=== PATIENT | female | born 1995 | race Caucasian/White ===

== ENCOUNTER 2017-09-04 10:20 | Emergency (ER) | payer OTHER ==
[2017-09-04 10:36] VITALS: BP 112/73; PULSE 65; TEMP 98.9; BMI 21.6
--- NOTE | 2017-09-04 10:36 | PDOC ---
History of Present Illness - General Chief Complaint: Injury Stated Complaint: RIGHT ELBOW PAIN Time Seen by Provider: 09/04/17 10:36 History Source: Patient Exam Limitations: No Limitations - History of Present Illness Initial Comments: 09/04/17 11:51 Pt presents to the ED complaining of R elbow pain after falling and injuring her elbow at work 10 days ago. Patient reports that there was a large bruise at the time of the injury. Presents today because although she has a full ROM at her elbow and is able to use her arm normally, she is concerned because she has persistent pain. Also reports that the area of bruising turned yellow yesterday and that this was concerning to her. Past History - Past Medical History Allergies/Adverse Reactions: Allergies Allergy/AdvReac Type Severity Reaction Status Date / Time No Known Allergies Allergy Verified 09/04/17 10:33 Home Medications: Ambulatory Orders Lamotrigine [Lamictal Xr] 100 mg PO HS 09/04/17 Risperidone [Risperdal] 2 mg PO HS 09/04/17 COPD: No Psychiatric Problems: Yes - Immunization History Td Vaccination: Yes Immunization Up to Date: Yes - Suicide/Smoking/Psychosocial Hx Smoking Status: No Smoking History: Smoker current status UNK Number of Cigarettes Smoked Daily: 0 Cigars Per Day: 0 Hx Alcohol Use: No Drug/Substance Use Hx: No Substance Use Type: None Review of Systems - Review of Systems Able to Perform ROS?: Yes Is the patient limited Danish proficient: No Constitutional: No: Symptoms Reported, See HPI, Chills, Diaphoresis, Fever, Loss of Appetite, Malaise, Night Sweats, Weakness, Weight Stable, Unintentional Wgt. Loss, Unexplained wgt Loss, Other HEENTM: No: Symptoms Reported, See HPI, Eye Pain, Blurred Vision, Tearing, Recent change in vision, Double Vision, Cataracts, Ear Pain, Ocular Prothesis, Ear Discharge, Nose Pain, Nose Congestion, Tinnitus, Nose Bleeding, Hearing Loss , Throat Pain, Throat Swelling, Mouth Pain, Dental Problems, Difficulty Swallowing, Mouth Swelling, Other Respiratory: No: Symptoms reported, See HPI, Cough, Orthopnea, Shortness of Breath, SOB with Exertion, SOB at Rest, Stridor, Wheezing, Productive cough, Hemoptysis, Other Cardiac (ROS): No: Symptoms Reported, See HPI, Chest Pain, Edema, Irregular Heart Rate, Lightheadedness, Palpitations, Syncope, Chest Tightness, Other ABD/GI: No: Symptoms Reported, See HPI, Abdominal Distended, Abd. Pain w/ defecation, Blood Streaked Bowels, Constipated, Diarrhea, Difficulty Swallowing , Nausea, Poor Appetite, Poor Fluid Intake, Rectal Bleeding, Vomiting, Indigestion, Abdominal cramping, Tarry Stools, Other Musculoskeletal: Yes: Joint Stiffness. No: Symptoms Reported, See HPI, Back Pain, Gout, Joint Pain, Joint Swelling, Muscle Pain, Muscle Weakness, Neck Pain , Other *Physical Exam - Vital Signs Last Vital Signs Temp Pulse Resp BP Pulse Ox 98.9 F 65 15 112/73 99 09/04/17 10:29 09/04/17 10:29 09/04/17 10:29 09/04/17 10:09/04/17 10:29 - Physical Exam General Appearance: Yes: Nourished, Appropriately Dressed, Apparent Distress HEENT: positive: Normal ENT Inspection Neck: positive: Supple Respiratory/Chest: positive: Lungs Clear, Normal Breath Sounds Cardiovascular: positive: Regular Rhythm, Regular Rate, S1, S2 Musculoskeletal: positive: Normal Inspection Extremity: positive: Normal Inspection, Normal Range of Motion (R elbow--normal ROM, no bony tenderness. Small area of yellow discoloration consistent with healing bruise. ) Medical Decision Making - Medical Decision Making 09/04/17 11:57 Pt presents to the ED complaining of R elbow pain after injuring her elbow 10 days ago. No signs consistent with bony fracture. Will discharge home with follow up with her PMD. *DC/Admit/Observation/Transfer Diagnosis at time of Disposition: Contusion, elbow Qualifiers: Encounter type: initial encounter Laterality: right Qualified Code(s): S50.01XA - Contusion of right elbow, initial encounter - Discharge Dispostion Disposition: HOME Condition at time of disposition: Good - Referrals Referrals: Wero Coto MD [Primary Care Provider] - - Patient Instructions Printed Discharge Instructions: DI for Elbow Pain Additional Instructions: return to the ED for severe pain and swelling, unable to bend the elbow, other new or worsening symptoms. - Post Discharge Activity
== END 2017-09-04 12:19 | disposition home or self-care (01) ==
LOC: FER 10:20
DX: S50.01XA Contusion of right elbow, initial encounter (principal); W19.XXXA Unspecified fall, initial encounter; Y93.9 Activity, unspecified; Y92.9 Unspecified place or not applicable; Y99.0 Civilian activity done for income or pay; F99 Mental disorder, not otherwise specified
CPT/HCPCS: 73070-TC-RT-FY; 84703; 99282-25